=== PATIENT | female | born 1950 | race Caucasian/White ===

== ENCOUNTER → 2016-05-29 | Outpatient (CLI) | payer OTHER ==
--- NOTE | 2016-05-29 18:32 | DX ---
Cervical Spine (7 Views) Including Flexion and Extension Clinical Indications: Neck pain. Postoperative follow-up, comparison MRI cervical spine January 17, 2016. Evaluate for instability. Findings: Postoperative changes of interbody fusion are seen extending from C3-C4 to the C6-C7 level. An anterior fusion plate is present at the C3-C4 level. There is a decompressive laminectomy from C3 -C4 to the C6-C7 level. Screw and wire construct is positioned posteriorly at C6-C7. There is straigh tening of the normal cervical curvature. Prevertebral soft tissues appear normal. Anterolisthesis of C7 with respect to T1 estimated at 6 mm and unchanged with flexion or extension. T his is a similar measurement to the estimate on the previous MRI scan. IMPRESSION: Postoperative changes as well as interbody fusion noted as detailed above. There is a gra de 1 anterolisthesis of C7 with respect to T1 not significantly changed from prior MRI study and no i nstability is demonstrated on flexion or extension.
== END ==
LOC: CIMAGING 13:27
PROVIDERS: ATTEND Physical Medicine & Rehabilitation
DX: M54.2 Cervicalgia (principal); M43.13 Spondylolisthesis, cervicothoracic region; Z98.890 Other specified postprocedural states; Z98.1 Arthrodesis status
CPT/HCPCS: 72052-PO